=== PATIENT | male | born 1935 | race Caucasian/White ===

== ENCOUNTER 2019-04-22 08:31 | Emergency (ER) | payer OTHER, MEDICARE ==
[~2019-04-22] VITALS: Ht 180.3 cm; Wt 74.4 kg
[~2019-04-22 08:31] MED LIST: AZITHROMYCIN 2250 MG PO; MUCINEX600 MG PO; [UNRECOGNIZED DRUG - REMARK]
[2019-04-22] MEDS ORDERED: PRAVACHOL20 MG PO (09:03)
[2019-04-22 09:20] LABS: ABSOLUTE NEUTROPHILS 2.8 thou/uL (1.4-8.2); BASOPHILS 0.5 % (0.0-2.0); EOSINOPHILS 2.8 % (0.0-3.0); HEMATOCRIT 40.9 % (42.0-52.0); HEMOGLOBIN 13.8 gm/dL (14.0-18.0); LYMPHOCYTES 23.5 % (24.0-44.0); MCH 32.5 pg (26.0-34.0); MCHC 33.7 g/dL (28.0-37.0); MCV 96.6 fL (80.0-100.0); PLATELET COUNT 118 thou/uL (150-400); POLYS 64.2 % (36.0-66.0); RBC 4.24 mil/uL (4.50-6.00); RDW 13.3 % (10.5-14.5); WBC 4.4 thou/uL (4.0-11.0)
[2019-04-22 09:24] LABS: ANION GAP 8 mmol/L (7-16); BUN 19 mg/dL (7-18); CALCIUM 9.2 mg/dL (8.5-10.1); CHLORIDE 104 mmol/L (98-107); CO2 27 mmol/L (21-32); CREATININE 1.4 mg/dL (0.7-1.3); GLUCOSE 151 mg/dL (74-106); SODIUM 139 mmol/L (136-145)
[2019-04-22 09:34] LABS: ALBUMIN 3.7 g/dL (3.4-5.0); SGOT 18 U/L (15-37); SGPT 21 U/L (30-65); TOTAL BILIRUBIN 0.6 mg/dL (<0.1-1.0); TROPONIN-I <0.06 ng/mL (<0.06)
[2019-04-22 10:24] LABS: URINE BILIRUBIN NEGATIVE (Negative); URINE BLOOD NEGATIVE (Negative); URINE CLARITY CLEAR; URINE COLOR YELLOW; URINE GLUCOSE-RANDOM* NEGATIVE (Negative); URINE KETONES NEGATIVE (Negative); URINE LEUKOCYTES-REFLEX NEGATIVE (Negative); URINE NITRITE-REFLEX NEGATIVE (Negative); URINE PROTEIN (DIPSTICK) NEGATIVE (Negative); URINE UROBILINOGEN 0.2 E.U./dl (0.2-1.0)
[2019-04-22 11:14] VITALS: BP 105/56
--- NOTE | 2019-04-22 11:44 | EKG ---
[place] [address] [facility] [place] [address] ELECTROCARDIOGRAM REPORT Name: DARLENE REYNOSO [facility]: [id number] Admission: 04/22/19 Attend Phys: Discharge: 04/22/19 Date of : 35 Report #: [id number] THIS REPORT FOR: //name// [facility] ED Test Date: 2019-04-22 Test Time: 08:52:09 Pat Name: DARLENE REYNOSO Department: Room: Gender: Admeasurer: [facility] : 1935 Requested By: Shaun Jones Order Number: [id number] MD: Joselito Harp Measurements Intervals [place] Rate: 65 P: 44 SC: 179 QRS: 22 QRSD: 98 T: 57 QT: 418 QTc: 435 Interpretive Statements Sinus rhythm Probable left atrial enlargement Borderline low voltage, extremity leads Compared to ECG 01/08/1991 06:48:00 No significant changes Electronically Signed On 04-22-2019 11:44:25 CDT by Joselito Harp [email or web address] <ELECTRONICALLY SIGNED> By: Joselito Harp MD 04/22/19 1144 1 Joselito Harp MD /BREANNE
== END 2019-04-22 11:10 | disposition home or self-care (01) ==
LOC: ER 08:31
PROVIDERS: Emergency Medicine
DX: R42 Dizziness and giddiness (principal); R79.89 Other specified abnormal findings of blood chemistry; Z88.2 Allergy status to sulfonamides